=== PATIENT | male | born 1950 | race Caucasian/White ===

== ENCOUNTER → 2017-02-24 | Outpatient (CLI) | payer MEDICARE, OTHER ==
--- NOTE | 2017-02-24 09:29 | REP ---
Chest two views HISTORY: Cough Comparison: None The lungs are clear. The heart is normal in size. The pulmonary vasculature is normal in appearance. The bony structure is intact. IMPRESSION: No acute disease. Signed by Cash Olivares MD 02/24/2017 09:21 A
== END ==
LOC: M SMT 09:01
PROVIDERS: ATTEND Internal Medicine Pulmonary Disease
DX: R05 Cough (principal)

== ENCOUNTER → 2017-09-21 | Outpatient (REF) | payer MEDICARE, OTHER ==
[2017-09-21 14:12] LABS: HEPATITIS C VIRUS ABY INDEX < 0.0 INDEX (<0.8)
== END ==
LOC: M LAB REF 12:32
DX: Z01.89 Encounter for other specified special examinations (principal)
CPT/HCPCS: 86803

== ENCOUNTER 2018-04-03 11:11 | Emergency (ER) | payer MEDICARE, SELFPAY | END 2018-04-03 13:05 | disposition home or self-care (01) | LOC: M ED 11:11 | DX: T18.5XXA Foreign body in anus and rectum, initial encounter (principal); X58.XXXA Exposure to other specified factors, initial encounter; Y92.89 Other specified places as the place of occurrence of the external cause; E78.5 Hyperlipidemia, unspecified | CPT/HCPCS: 74021 ==

== ENCOUNTER → 2019-01-21 | Outpatient (REF) | payer MEDICARE, OTHER ==
[~2019-01-21] MED LIST: PRAV20TA2
== END ==
LOC: M LAB REF 12:36
PROVIDERS: ATTEND Nurse Practitioner Family
DX: K14.6 Glossodynia (principal)

== ENCOUNTER → 2020-10-16 | Outpatient (CLI) | payer MEDICARE, OTHER ==
--- NOTE | 2020-10-16 10:21 | REP ---
INDICATION: COUGH, EXPOSURE TO ASBESTOSIS COMPARISON: 07/21/2019. TECHNIQUE: PA/Lateral FINDINGS: Lungs: Clear, no infiltrate. Heart: Normal in size. Mediastinum: Mediastinal silhouette unremarkable. Pleural angles: Unremarkable.. Bones and soft tissues: There are degenerative changes of the spine without compression deformity. IMPRESSION: No acute pulmonary disease. <Electronically signed by Shay Wakefield > 10/16/20 [id number]
--- NOTE | 2020-10-16 12:35 | REP ---
INDICATION: RIGHT POSTERIOR CHEST PAIN. TECHNIQUE: Two views FINDINGS: Mild anterior lipping and mild anterior disc space narrowing is seen at every level. Vertebral body height and alignment is within normal limits. There is bilateral marginal osteophyte formation seen at multiple levels. IMPRESSION: Chronic changes as described above. <Electronically signed by Car Shoemaker > 10/16/20 [id number]
--- NOTE | 2020-10-16 12:38 | REP ---
INDICATION: RIGHT POSTERIOR CHEST PAIN. COMPARISON: None TECHNIQUE: Two views FINDINGS: There is no acute fracture or destructive osseous lesion. IMPRESSION: Within normal limits <Electronically signed by Car Shoemaker > 10/16/20 [id number]
--- NOTE | 2020-10-16 12:42 | REP ---
INDICATION: RIGHT POSTERIOR CHEST PAIN. COMPARISON: 11/08/2014 TECHNIQUE: Five views FINDINGS: There is no evidence of an acute fracture or destructive osseous lesion. There is no significant change compared to the prior exam. IMPRESSION: No acute abnormality <Electronically signed by Car Shoemaker > 10/16/20 [id number]
== END ==
LOC: M WUC 09:09
PROVIDERS: ATTEND Internal Medicine
DX: R07.89 Other chest pain (principal); R05 Cough; Z77.090 Contact with and (suspected) exposure to asbestos

== ENCOUNTER → 2020-12-26 | Outpatient (CLI) | payer MEDICARE, OTHER ==
[2020-12-26 16:23] LABS: BASO # 0.1 10^3/uL (0.0-0.2); BASO % 0.6 % (0.0-1.0); EOS # 0.2 10^3/uL (0.0-0.5); EOS % 1.9 % (0.0-3.0); HEMATOCRIT 42.4 % (42.0-52.0); HEMOGLOBIN 13.9 g/dl (13.5-17.5); LYMPH # 1.7 10^3/uL (1.5-5.0); LYMPH % 20.7 % (24.0-44.0); MEAN CORPUSCULAR HEMOGLOBIN 32.7 pg (27.0-33.0); MEAN CORPUSCULAR HGB CONC 32.8 g/dl (32.0-36.5); MEAN CORPUSCULAR VOLUME 99.8 fl (80.0-96.0); MONO # 0.7 10^3/uL (0.0-0.8); MONO % 7.8 % (2.0-8.0); NEUTROPHILS # 5.7 10^3/uL (1.5-8.5); NEUTROPHILS % 68.6 % (36.0-66.0); PLATELET COUNT, AUTOMATED 228 10^3/uL (150-450); RED BLOOD COUNT 4.25 10^6/uL (4.30-6.10); WHITE BLOOD COUNT 8.4 10^3/uL (4.0-10.0)
== END ==
LOC: M WUC 15:02
PROVIDERS: ATTEND Physician Assistant
DX: R22.1 Localized swelling, mass and lump, neck (principal)

== ENCOUNTER → 2020-12-26 | Outpatient (CLI) | payer MEDICARE, OTHER ==
--- NOTE | 2020-12-26 16:27 | REP ---
INDICATION: LOCALIZED SWELLING, MASS AND LUMP, NECK. COMPARISON: None. TECHNIQUE: Real-time sonographic evaluation of left neck performed at the site of a palpable abnormality present for 3 months. FINDINGS: At the site of the palpable lump a morphologically normal appearing lymph node is present 1.2 x 0.5 x 0.7 cm. Adjacent to this the left submandibular gland measures 3.9 x 1.5 x 2.7 cm. The right submandibular gland measures 3.8 x 1.6 x 1.5 cm. No definite mass is seen in either submandibular gland. IMPRESSION: A morphologically normal appearing lymph node is visualized sonographically at the site of the palpable lump. The adjacent left submandibular gland is sonographically unremarkable. <Electronically signed by Shay Wakefield > 12/26/20 2012
== END ==
LOC: M RAD 15:45
PROVIDERS: ATTEND Physician Assistant
DX: R22.1 Localized swelling, mass and lump, neck (principal)

== ENCOUNTER → 2021-02-13 | Outpatient (CLI) | payer MEDICARE, OTHER | LOC: M LABSMTC 09:06 | PROVIDERS: ATTEND Pediatrics | DX: Z20.822 Contact with and (suspected) exposure to COVID-19 (principal) | CPT/HCPCS: C9803; U0003 ==

== ENCOUNTER → 2021-06-05 | Outpatient (CLI) | payer MEDICARE, OTHER | LOC: M WUC 12:21 | PROVIDERS: ATTEND Nurse Practitioner Adult Health | DX: S22.41XA Multiple fractures of ribs, right side, initial encounter for closed fracture (principal); W19.XXXA Unspecified fall, initial encounter; Y92.89 Other specified places as the place of occurrence of the external cause; Y93.89 Activity, other specified; Y99.8 Other external cause status ==

== ENCOUNTER → 2023-09-16 | Outpatient (CLI) | payer MEDICARE, OTHER ==
[~2023-09-16] MED LIST changes: +D-101000 PO; +FAMO1TAB11 PO; +LORA-930 PO
== END ==
LOC: M RAD 09:52
PROVIDERS: ATTEND Physician Assistant Medical
DX: R10.31 Right lower quadrant pain (principal); K40.90 Unilateral inguinal hernia, without obstruction or gangrene, not specified as recurrent

== ENCOUNTER → 2024-05-17 | Outpatient (REF) | payer MEDICARE, OTHER | LOC: M LAB REF 17:05 | PROVIDERS: ATTEND Internal Medicine | DX: R07.9 Chest pain, unspecified (principal); R06.02 Shortness of breath ==

== ENCOUNTER → 2024-05-17 | Outpatient (CLI) | payer MEDICARE, OTHER | LOC: M WUC 14:38 | PROVIDERS: ATTEND Internal Medicine | DX: R06.02 Shortness of breath (principal); R07.9 Chest pain, unspecified ==

== ENCOUNTER → 2024-05-19 | Outpatient (CLI) | payer MEDICARE, OTHER ==
[~2024-05-19] MED LIST changes: +ISOVUE-370 76% 100ML VIAL As Ordered ONE
== END ==
LOC: M RAD 13:26
PROVIDERS: ATTEND Internal Medicine
DX: R06.02 Shortness of breath (principal); J98.11 Atelectasis
CPT/HCPCS: 71275; Q9967

== ENCOUNTER → 2024-07-22 | Outpatient (CLI) | payer MEDICARE, OTHER ==
[~2024-07-22] MED LIST changes: -ISOVUE-370 76% 100ML VIAL As Ordered ONE
== END ==
LOC: M RAD 08:44
PROVIDERS: ATTEND Internal Medicine
DX: I71.40 Abdominal aortic aneurysm, without rupture, unspecified (principal)